=== PATIENT | female | born 1960 | race Caucasian/White ===

== ENCOUNTER 2021-12-01 14:38 | Outpatient (CLI) | payer BC, SELFPAY ==
--- NOTE | 2021-12-01 15:23 | MM_ITS ---
WS: [id number] BILATERAL 3D TOMOSYNTHESIS DIGITAL SCREENING MAMMOGRAPHY WITH CAD CLINICAL INFORMATION: SCREENING HISTORY: Screening mammogram. No current complaints. COMPARISON: August 02, 2017 TECHNIQUE: Bilateral CC and MLO views. FINDINGS: Bilateral breast implants appear intact. Scattered fibroglandular densities bilaterally. No suspicious focal mass, asymmetry, calcifications, or architectural distortion. No evidence of malignancy. MM/[place] [id number] IMPRESSION: BI-RADS: 2-Benign FOLLOW UP: 1 Year Follow-up Recommend return to annual screening mammography.
== END 2021-12-01 14:39 | disposition home or self-care (01) ==
LOC: RAD 14:40
PROVIDERS: PCP Family Medicine; Visit Provider Family Medicine
DX: Z12.31 Encounter for screening mammogram for malignant neoplasm of breast (principal)
CPT/HCPCS: 77063; 77067

== ENCOUNTER → 2022-01-17 13:39 | Outpatient (BNVA) | payer BC, SELFPAY | PROVIDERS: PCP Family Medicine; Visit Provider Clinical Nurse Specialist Adult Health | DX: R53.83 Other fatigue (principal) | CPT/HCPCS: 81000 ==

== ENCOUNTER 2022-03-03 06:55 | Outpatient (CLI) | payer BC, SELFPAY ==
--- NOTE | 2022-03-03 07:15 | MR_ITS ---
WS: [id number] MRI LEFT KNEE NONCONTRAST TECHNIQUE: Axial PD, coronal PD fat sat, coronal PD, sagittal PD, and sagittal PD fat-sat images obta ined. CLINICAL INFORMATION: knee pain COMPARISON: None. FINDINGS: Distal quadriceps and patella tendons are intact. Hypertrophic patella. Advanced tricompartmental art hritis with joint space narrowing. Mucoid degeneration involving the ACL which appears intact. Normal PCL. Chronic thinning of the medial and lateral meniscus. Peripheral extrusion of the medial meniscu s with chronic intrasubstance signal abnormality and chronic tear. Probable partial medial meniscectomy. Advanced chondromalacia medial and lateral joint compartments w ith subchondral edema involving the medial femoral condyle and tibial plateau. Hypertrophic changes a long the joint line. Advanced chondromalacia patella. Medial and lateral collateral ligaments appear intact. Tiny poplitea l cyst measuring 1.7 x 1.0 x 4.4 cm AP by transverse by craniocaudal. MR/MR knee LT wo con* [id number] IMPRESSION: 1. 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 Tiny am ount of subchondral edema involving the patella. 2. Mucoid degeneration of the ACL. ACL and PCL otherwise appear intact. 3. Chronic thinning of the medial and lateral meniscus with prior postoperativ e changes medial meniscectomy and chronic intrasubstance signal abnormality. 4. Medial and lateral collateral ligaments are intact. 5. Tiny popliteal cyst. Outbridge grading: grade IV: full-thickness cartilage loss with underlying bone reactive changes
== END 2022-03-03 06:56 | disposition home or self-care (01) ==
LOC: RAD 06:55
PROVIDERS: PCP Family Medicine; Visit Provider Family Medicine
DX: M17.12 Unilateral primary osteoarthritis, left knee (principal); M71.22 Synovial cyst of popliteal space [Baker], left knee; R60.0 Localized edema; M94.262 Chondromalacia, left knee
CPT/HCPCS: 73721

== ENCOUNTER → 2022-08-02 11:44 | Outpatient (BNVA) | payer BC, SELFPAY | PROVIDERS: PCP Family Medicine; Visit Provider Clinical Nurse Specialist Adult Health | DX: R35.0 Frequency of micturition (principal); N30.00 Acute cystitis without hematuria; J32.9 Chronic sinusitis, unspecified | CPT/HCPCS: 81000; 87077; 87086; 87184 ==

== ENCOUNTER → 2022-12-15 07:19 | Outpatient (BNVA) | payer BC, SELFPAY | PROVIDERS: PCP Family Medicine; Visit Provider Clinical Nurse Specialist Adult Health | DX: N39.0 Urinary tract infection, site not specified (principal) | CPT/HCPCS: 81000; 87086 ==

== ENCOUNTER → 2023-01-19 08:03 | Outpatient (BNVA) | payer BC, SELFPAY | PROVIDERS: PCP Family Medicine; Visit Provider Clinical Nurse Specialist Adult Health | DX: N30.01 Acute cystitis with hematuria (principal) | CPT/HCPCS: 81000; 87086 ==

== ENCOUNTER → 2023-02-09 08:31 | Outpatient (BNVA) | payer BC, SELFPAY | PROVIDERS: PCP Family Medicine; Visit Provider Podiatrist Foot & Ankle Surgery | DX: M21.862 Other specified acquired deformities of left lower leg (principal); M72.2 Plantar fascial fibromatosis; M76.62 Achilles tendinitis, left leg | CPT/HCPCS: 73630 ==

== ENCOUNTER → 2023-04-27 15:28 | Outpatient (BNVA) | payer BC, SELFPAY | PROVIDERS: PCP Family Medicine; Visit Provider Family Medicine | DX: R39.9 Unspecified symptoms and signs involving the genitourinary system (principal) | CPT/HCPCS: 81000; 81003 ==

== ENCOUNTER 2025-06-11 09:35 | Outpatient (CLI) | payer MEDICARE, OTHER, SELFPAY ==
--- NOTE | 2025-06-11 09:44 | MM_ITS ---
WS: [id number] BILATERAL SCREENING DIGITAL BREAST MAMMOGRAPHY WITH MALU DISPLACEMENT VIEWS. CAD PERFORMED. HISTORY: SCREENING COMPARISON: 12/01/2021, 08/02/2017 Bilateral craniocaudal and mediolateral oblique views are performed with tomosynthesis and SM. Malu displacement views in CC and MLO projection also performed. Breasts composition: There are scattered areas of fibroglandular density. Retropectoral implants are intact. No suspicious grouping of calcifications. No architectural distortion or nipple retraction. MM/MM scr BI tomosynthesis [id number] IMPRESSION: BI-RADS: 2 - Benign. FOLLOW-UP: 1 Year Follow-up
== END 2025-06-11 09:36 | disposition home or self-care (01) ==
LOC: RAD 09:40
PROVIDERS: PCP Electrodiagnostic Medicine; Visit Provider Electrodiagnostic Medicine
DX: Z12.31 Encounter for screening mammogram for malignant neoplasm of breast (principal); R92.323 Mammographic fibroglandular density, bilateral breasts; Z98.82 Breast implant status
CPT/HCPCS: 77063; 77067